=== PATIENT | male | born 1945 | race Caucasian/White ===

== ENCOUNTER → 2018-01-18 | Outpatient (CLI) | payer MEDICARE, OTHER | END | disposition home or self-care (01) | LOC: PCVCCLINIC 16:20 | PROVIDERS: ATTEND Internal Medicine | DX: Z01.810 Encounter for preprocedural cardiovascular examination (principal); R06.09 Other forms of dyspnea; R53.83 Other fatigue; I10 Essential (primary) hypertension; R68.89 Other general symptoms and signs; G47.33 Obstructive sleep apnea (adult) (pediatric); E78.5 Hyperlipidemia, unspecified; Z72.0 Tobacco use; Z99.89 Dependence on other enabling machines and devices | CPT/HCPCS: 93005; G0463 ==

== ENCOUNTER → 2018-01-26 | Outpatient (CLI) | payer MEDICARE, OTHER ==
[~2018-01-26] MED LIST: REGADENOSON 0.4 MG/5 ML DISP.SYRIN. IV ONE
--- NOTE | 2018-01-26 15:28 | PCVCIMAG ---
APPROVED REPORT Imaging Protocol: Rest Tc-99m/Stress Tc-99m 1 day Study performed: 01/26/2018 09:34:36 Indication: Dyspnea, Fatigue, Exercise Intolerance Patient Location: Out-Patient Stress Nurse: Ceci Barone RN, [place] RN AR Tech:Vivian Abadriley [facility] Ht: 6 ft 1 in Wt: 254 lbs BSA: 2.38 m2 HR: 83 bpm BP: 131/63 mmHg BMI: 33.50 Medical History Medical History: HTN, Hyperlipidemia, Former Smoker Medications: ASA, Gabapentin, Lisinopril, Flomax Allergies: PCN Cardiac Risk Factors: Age Exercise History: Physically active Resting Data Rest SPECT myocardial perfusion imaging was performed in supine position 45 minutes following the intravenous injection of 11.2 mCi of Tc-99m Sestamibi. Time of rest injection: 914 Date: 01/26/2018 Administration Route: IV Administration Site: Left AC Pharmacologic Stress Pharmacologic stress test was performed by injecting Regadenoson 0.4 mg IV push over 10-15 seconds immediately followed by the intravenous injection of 34.7 mCi of Tc-99m Sestamibi. Time of stress injection: 1020 Date: 01/26/2018 Administration Route: IV Administration Site: Left AC Gated Stress SPECT was performed 45 minutes after stress injection. The images were gated to evaluate regional wall motion and calculate left ventricular ejection fraction. Stress Test Details Stress Test: Pharmacologic stress testing performed using 0.4 mg of regadenoson per 5 mL given IV over 10 seconds. Reason for pharmacologic stress test: knee issues. HRMax Heart Rate (APMHR): 148 bpm Resting HR: 83 bpmTarget HR (85% APMHR): 125 bpm Max HR Achieved: 96 bpm % of APMHR: 64 Recovery HR: 82 bpm BP Resting BP: 131/63 mmHg Max BP: 133/64 mmHg Recovery BP: 128/64 mmHg ECG Resting ECG: Sinus Rhythm, nonspecific ST-T abnormalities Stress ECG: Sinus Rhythm, nonspecific ST-T abnormalities Recovery ECG: Sinus Rhythm, nonspecific ST-T abnormalities Clinical Reason for Termination: Completed protocol Stress Symptoms: Dyspnea Exercise duration: 0 min 55 sec Symptoms resolved with caffeine. Stress ECG Conclusion 1. Adequate response to IV lexiscan 2.Inadequate Heart Rate for ECG diagnosis Study Data Post stress, the left ventricular ejection was 75%.. SSS: 0 SRS: 0 SDS: 0 TID = 1.05. Perfusion There is a medium area of moderately reduced uptake in the mid and apical segment of the anterolateral wall which is seen on the stress images and normalizes on the resting images. This area thickens and moves normally and is most consistent with ischemia. Nuclear Conclusion ECG Findings: non-diagnostic Clinical Findings: negative for ischemia Nuclear Findings: positive for ischemia Exercise Capacity: not assessed Left Ventricular Function: normal 1. Intermediate to high risk study <Conclusion> 1. Adequate response to IV lexiscan 2.Inadequate Heart Rate for ECG diagnosis
--- NOTE | 2018-01-27 09:05 | PCVCIMAG ---
APPROVED REPORT Study performed: 01/26/2018 08:27:21 EXAM: Comprehensive 2D, Doppler, and color-flow Echocardiogram Patient Location: Echo lab Room #: 2Status: routine BSA: 2.38 HR: 77 bpmBP: 142/72 mmHg Rhythm: NSR Other Information Study Quality: Good Risk Factors: Cardiac Risk Factors: HTN, Hyperlipidemia, Smoking Indications Pre-Op Dyspnea Fatigue Hypertension/HDD 2D Dimensions IVSd: 7.89 (7-11mm)LVOT Diam: 19.86 (18-24mm) LVDd: 46.53 mm PWd: 9.51 (7-11mm)Ascending Ao: 34.02 (22-36mm) LVDs: 18.58 (25-40mm) Left Atrium: 33.87 (27-40mm) Aortic Root: 22.60 mm LV Single Plane 4CH: 62.78 % LV Single Plane 2CH: 61.34 % Biplane EF: 62.6 % Volumes Left Atrial Volume (Systole) Single Plane 4CH: 50.27 mLSingle Plane 2CH: 55.96 mL Biplane LA Volume: 55.00 mLLA ESV Index: 23.00 mL/m2 Aortic Valve AoV Peak Mehul.: 1.68 m/s AO Peak Gr.: 11.31 mmHgLVOT Max P.33 mmHg LVOT Max V: 1.03 m/s GERALD Vmax: 1.90 cm2 Mitral Valve E/A Ratio: 0.9 MV Decel. Time: 192.55 ms MV E Max Mehul.: 0.66 m/s MV A Mehul.: 0.72 m/s TDI E/Lateral E': 11.00E/Medial E': 9.43 Medial E' Mehul.: 0.07 m/s Lateral E' Mehul.: 0.06 m/s Pulmonary Valve PV Peak Mehul.: 0.99 m/sPV Peak Gr.: 3.92 mmHg Pulmonary Vein P Vein S: 0.63 m/sP Vein A: 0.28 m/s P Vein D: 0.45 m/sP Vein A Dur.: 72.7 msec P Vein S/D Ratio: 1.40 Tricuspid Valve TR Peak Mehul.: 2.26 m/s TR Peak Gr.: 20.41 mmHg TV Vmax: 0.53 m/sPA Pressure: 30.00 mmHg Left Ventricle The left ventricle is normal size. There is normal LV segmental wall motion. There is normal left ventricular wall thickness. Left ventricular systolic function is normal. The left ventricular ejection fraction is within the normal range. LVEF is 60-65%. Grade I - abnormal relaxation pattern. Right Ventricle The right ventricle is normal size. The right ventricular systolic function is normal. Atria The left atrium size is normal. The right atrium size is normal. Aortic Valve Aortic valve is trileaflet. No aortic regurgitation is present. There is no aortic valvular stenosis. Mitral Valve The mitral valve is normal in structure. There is no mitral valve regurgitation noted. No evidence of mitral valve stenosis. Tricuspid Valve The tricuspid valve is normal in structure. Mild tricuspid regurgitation with a PA pressure of 30 mmHg. No apparent pulmonary hypertension. Pulmonic Valve The pulmonary valve is normal in structure. There is no pulmonic valvular regurgitation. Great Vessels The aortic root is normal in size. The ascending aorta is normal in size. IVC is not well visualized. Pericardium There is no pericardial effusion. There is no pleural effusion. <Conclusion> Left ventricular systolic function is normal. There is normal LV segmental wall motion. LVEF is 60-65%. Mild diastolic dysfunction Aortic valve is trileaflet. No aortic regurgitation or stenosis. The mitral valve is normal in structure. No mitral valve regurgitation Mild tricuspid regurgitation with a pulmonary artery pressure of 30 mmHg. There is no pericardial effusion.
== END | disposition home or self-care (01) ==
LOC: PCVCIMAG 08:26
PROVIDERS: ATTEND Internal Medicine
DX: Z01.810 Encounter for preprocedural cardiovascular examination (principal); I07.1 Rheumatic tricuspid insufficiency; R06.09 Other forms of dyspnea; R53.83 Other fatigue; I10 Essential (primary) hypertension; R68.89 Other general symptoms and signs; E78.5 Hyperlipidemia, unspecified; Z87.891 Personal history of nicotine dependence
CPT/HCPCS: 78452; 93017; 93306; A9500; J2785

== ENCOUNTER → 2018-02-08 | Outpatient (CLI) | payer MEDICARE, OTHER | END | disposition home or self-care (01) | LOC: PCVCCLINIC 16:24 | PROVIDERS: ATTEND Internal Medicine | DX: R06.09 Other forms of dyspnea (principal); I10 Essential (primary) hypertension; G47.33 Obstructive sleep apnea (adult) (pediatric); F17.200 Nicotine dependence, unspecified, uncomplicated; Z99.89 Dependence on other enabling machines and devices; Z88.0 Allergy status to penicillin; Z79.82 Long term (current) use of aspirin | CPT/HCPCS: G0463 ==

== ENCOUNTER → 2018-08-01 | Outpatient (CLI) | payer MEDICARE, OTHER | END | disposition home or self-care (01) | LOC: PCVCCLINIC 13:00 | PROVIDERS: ATTEND Internal Medicine | DX: I25.10 Atherosclerotic heart disease of native coronary artery without angina pectoris (principal); I10 Essential (primary) hypertension; E78.5 Hyperlipidemia, unspecified; G47.33 Obstructive sleep apnea (adult) (pediatric); Z72.0 Tobacco use | CPT/HCPCS: 93005; G0463 ==